=== PATIENT | male | born 1960 | race American Indian/Alaskan Native ===

== ENCOUNTER 2020-10-23 14:17 | Emergency (ER) | payer MEDICARE ==
--- NOTE | 2020-10-23 15:03 | Emergency Department Report ---
ED General Adult HPI - General Stated complaint: ALLERGIC REACTION Time Seen by Provider: 10/23/20 14:58 - History of Present Illness Initial comments: Patient is a 60-year-old F [place] male with past medical history of mental health disease who is presenting after allergic reaction. Patient states that he did not have a rash and he is was only brought here because he was grinding his teeth. Paramedics report to nursing staff state that the patient did have a maculopapular rash diffusely and was having an acute allergic reaction. Patient received 0.3 of epinephrine subcu is well is 50 mg of Benadryl 125 mg of Solu- Medrol as well as dose IV Pepcid. Patient is currently symptom-free states his teeth grinding has resolved and he is feeling much improved. - Related Data Previous Rx's Medication Instructions Recorded Last Taken Type diphenhydrAMINE [Benadryl CAP] 25 mg PO Q6HR #12 capsule 10/23/20 Unknown Rx predniSONE [Deltasone] 20 mg PO QDAY #5 tab 10/23/20 Unknown Rx ED Review of Systems ROS: Stated complaint: ALLERGIC REACTION Other details as noted in HPI Comment: All other systems reviewed and negative ED Past Medical Hx - Medications Home Medications: Home Medications Medication Instructions Recorded Confirmed Last Taken Type diphenhydrAMINE [Benadryl CAP] 25 mg PO Q6HR #12 capsule 10/23/20 Unknown Rx predniSONE [Deltasone] 20 mg PO QDAY #5 tab 10/23/20 Unknown Rx ED Physical Exam - General General appearance: alert, in no apparent distress - Head Head exam: Present: atraumatic, normocephalic - Eye Eye exam: Present: normal appearance - ENT ENT exam: Present: mucous membranes moist - Neck Neck exam: Present: normal inspection - Respiratory Respiratory exam: Present: normal lung sounds bilaterally. Absent: respiratory distress, wheezes, rales, rhonchi - Cardiovascular Cardiovascular Exam: Present: regular rate, normal rhythm, normal heart sounds. Absent: systolic murmur, diastolic murmur, rubs, gallop - GI/Abdominal GI/Abdominal exam: Present: soft, normal bowel sounds. Absent: distended, tenderness, guarding - Rectal Rectal exam: Present: deferred - Extremities Exam Extremities exam: Present: normal inspection - Back Exam Back exam: Present: normal inspection - Neurological Exam Neurological exam: Present: alert, oriented X3 - Psychiatric Psychiatric exam: Present: normal affect, normal mood - Skin Skin exam: Present: warm, dry, intact, normal color. Absent: rash ED Medical Decision Making - Medical Decision Making Patient does not seem to have any symptoms at this time. The maculopapular rash reported by paramedics as resolved after medications given. Patient states he feels as though he is here because of teeth grinding which also will be helped with the Benadryl. Patient be discharged home medication for symptomatic relief. Critical care attestation.: If time is entered above; I have spent that time in minutes in the direct care of this critically ill patient, excluding procedure time. ED Disposition Clinical Impression: Acute allergic reaction, Extrapyramidal movement disorder, Dystonic drug reaction Disposition: DC-01 TO HOME OR SELFCARE Is pt being admited?: No Does the pt Need Aspirin: No Condition: Stable Instructions: Allergies, Adult, [id number], Dystonia Referrals: PAMELA PERKINSAMADO MD [facility] [Referring] - 3-5 Days Time of Disposition: 15:04
[2020-10-23 15:20] VITALS: BP 123/69
== END 2020-10-23 22:50 | disposition home or self-care (01) ==
LOC: ED 14:17
DX: T78.40XA Allergy, unspecified, initial encounter (principal); G25.9 Extrapyramidal and movement disorder, unspecified; T50.905A Adverse effect of unspecified drugs, medicaments and biological substances, initial encounter; Z79.899 Other long term (current) drug therapy; X58.XXXA Exposure to other specified factors, initial encounter; Y92.89 Other specified places as the place of occurrence of the external cause